=== PATIENT | female | born 1990 | race Caucasian/White ===

== ENCOUNTER → 2017-12-28 16:19 | Outpatient (CLI) | payer OTHER, SELFPAY ==
[2017-12-28 18:07] LABS: T4 Free Direct 1.19 ng/dL (0.76-1.46); Thyroid Stim Hormone (TSH) 3.92 uIU/mL (0.358-3.74)
== END ==
PROVIDERS: Family Provider Family Medicine; PCP Family Medicine; Visit Provider Family Medicine
DX: E03.9 Hypothyroidism, unspecified (principal)
CPT/HCPCS: 36415; 84439; 84443

== ENCOUNTER → 2018-02-07 16:05 | Outpatient (CLI) | payer OTHER, SELFPAY ==
[2018-02-07 18:24] LABS: T4 Free Direct 1.44 ng/dL (0.76-1.46); Thyroid Stim Hormone (TSH) 2.61 uIU/mL (0.358-3.74)
== END ==
PROVIDERS: Family Provider Family Medicine; PCP Family Medicine; Visit Provider Family Medicine
DX: E03.9 Hypothyroidism, unspecified (principal)
CPT/HCPCS: 36415; 84439; 84443

== ENCOUNTER → 2018-03-09 14:32 | Outpatient (CLI) | payer OTHER, SELFPAY ==
[2018-03-09 16:36] LABS: Free T3 2.5 pg/mL (2.18-3.98); T4 Free Direct 1.27 ng/dL (0.76-1.46); Thyroid Stim Hormone (TSH) 2.89 uIU/mL (0.358-3.74)
[2018-03-09 17:26] LABS: Chlamydia Trachomatis by PCR Negative (Negative); Neisserai gonorrhoeae by PCR Negative (Negative); Probe Check PASS; Sample Adequacy Control PASS; Specimen Processing Control PASS
[2018-03-13 17:22] LABS: PARVOVIRUS B19 IGG 6.4 index (0.0-0.8); PARVOVIRUS B19 IGM 0.1 index (0.0-0.8)
== END ==
PROVIDERS: Visit Provider Obstetrics & Gynecology
DX: Z11.3 Encounter for screening for infections with a predominantly sexual mode of transmission (principal)
CPT/HCPCS: 36415; 84439; 84443; 84481; 86747; 87491; 87591

== ENCOUNTER → 2018-04-06 10:04 | Outpatient (CLI) | payer OTHER, SELFPAY ==
[2018-04-06 11:35] LABS: Absolute Lymphocyte Count 1.85 X10^3/ul (0.83-4.51); Basophil# 0.01 X10^3/uL; Basophil% 0.1 % (0-1); Eosinophil# 0.25 X10^3/uL; Eosinophils% 3.2 % (0-5); Hematocrit 37.3 % (37-47); Lymphocyte # 1.85 X10^3/ul (4.0); Lymphocyte % 23.9 % (19-41); Mean Corp Hgb Conc 34.9 g/gl (32-36); Mean Corpuscular Volume 85.9 fL (81-99); Mean Platelet Vol. 10.8 fl (6.2-12.0); Monocyte# 0.62 X10^3/uL; Neutrophil # 4.99 X10^3/uL (2.7-7.7); Neutrophil % 64.5 % (47-70); Platelet Count 295 K/mm3 (150-450); RBC Distribution Width CV 12.6 % (11.6-14.6); RBC Distribution Width SD 38.9 fl (35.1-43.9); Red Blood Count 4.34 M/mm3 (4.2-5.4); White Blood Count 7.7 K/mm3 (4.4-11.0)
[2018-04-06 11:39] LABS: COTININE Drug Screen Negative (<200 ng/mL); POSITIVE COUNT NO; POSITIVE DIFFERENTIAL NO; POSITIVE MORPHOLOGY NO
[2018-04-06 11:45] LABS: Amphetamine Urine VISTA NEGATIVE (<1000 ng/mL); Barbiturate Urine VISTA NEGATIVE (< 200 ng/mL); Benzodiazepine Urine VISTA NEGATIVE (< 200 ng/mL); Cocaine Urine VISTA NEGATIVE (< 300 ng/mL); Ecstacy Urine VISTA NEGATIVE (< 500 ng/mL); Methadone Urine VISTA NEGATIVE (< 300 ng/mL); PCP Urine VISTA NEGATIVE (< 25 ng/mL); THC Urine VISTA NEGATIVE (< 50 ng/mL); Vista UDS pH Range 6
[2018-04-06 11:50] LABS: Thyroid Stim Hormone (TSH) 2.69 uIU/mL (0.358-3.74)
[2018-04-06 12:07] LABS: Color, Urine YELLOW (Yellow); Glucose, Dipstick Normal (Normal); Ketone-Dipstick Negative (Negative); Leukocyte Esterase-Dipstick 500 /ul (Negative); Nitrite-Dipstick Negative (Negative); Occult Blood-Urine Negative /ul (Negative); Protein-Dipstick Negative (Negative); Specific Gravity, Urine 1.015 (1.002-1.030); Urine Bilirubin Dipstick Negative (Negative); Urine Clarity Cloudy (Clear); Urine Urobilinogen Normal (Normal); Urine pH 6.5 (5.0 - 8.0)
[2018-04-06 13:10] LABS: HIV - WCH Non-Reactive (Nonreactive); Rubella IgG 39.5 IU/mL
[2018-04-08 09:10] LABS: HEPATITIS B SURFACE AG Negative (Negative); Hep C Antibodies <0.1 s/co ratio (0.0-0.9)
[2018-04-13 09:08] LABS: Prenatal RPR NONREACTIVE (NONREACTIVE)
== END ==
PROVIDERS: Visit Provider Obstetrics & Gynecology
DX: Z34.81 Encounter for supervision of other normal pregnancy, first trimester (principal)
CPT/HCPCS: 36415; 80307; 81002; 84443; 85025; 86703; 86762; 86803; 87340

== ENCOUNTER → 2018-04-25 13:08 | Outpatient (CLI) | payer OTHER, SELFPAY | PROVIDERS: Visit Provider Obstetrics & Gynecology | DX: Z34.82 Encounter for supervision of other normal pregnancy, second trimester (principal); R30.0 Dysuria | CPT/HCPCS: 87086; 87088 ==

== ENCOUNTER → 2018-06-07 15:31 | Outpatient (CLI) | payer OTHER, SELFPAY | PROVIDERS: Visit Provider Obstetrics & Gynecology | DX: R30.0 Dysuria (principal) | CPT/HCPCS: 87086; 87088 ==

== ENCOUNTER → 2018-07-05 16:58 | Outpatient (CLI) | payer OTHER, SELFPAY ==
[2018-07-05 17:15] LABS: Hematocrit 31.4 % (37-47); Hemoglobin 10.4 g/dl (12.0-15.0); Mean Corp Hgb Conc 33.1 g/gl (32-36); Mean Corpuscular Hgb 29.1 pg (27.0-32.0); Mean Corpuscular Volume 87.7 fL (81-99); Mean Platelet Vol. 11.2 fl (6.2-12.0); Platelet Count 262 K/mm3 (150-450); RBC Distribution Width CV 12.6 % (11.6-14.6); RBC Distribution Width SD 40.9 fl (35.1-43.9); Red Blood Count 3.58 M/mm3 (4.2-5.4); White Blood Count 10.1 K/mm3 (4.4-11.0)
[2018-07-05 17:18] LABS: Scan Indicated on CBC? Y/N NO
[2018-07-05 17:36] LABS: Mucous, Urine 0 SEEN /hpf (<or=2+)
[2018-07-05 17:41] LABS: Glucose Challenge Gest 1H 50g 117 mg/dL (70-140)
[2018-07-05 17:59] LABS: Color, Urine Straw (Yellow); Glucose, Dipstick Normal (Normal); Ketone-Dipstick Negative (Negative); Leukocyte Esterase-Dipstick 500 /ul (Negative); Nitrite-Dipstick Negative (Negative); Occult Blood-Urine 150 /ul (Negative); Protein-Dipstick Negative (Negative); Urine Bilirubin Dipstick Negative (Negative); Urine Clarity Clear (Clear); Urine Urobilinogen Normal (Normal)
[2018-07-05 18:41] LABS: Squamous Epithelial Cells - UA 0-5 SEEN /hpf (5-10)
[2018-07-05 18:43] LABS: White Blood Cells 5-10 SEEN /hpf (0-5)
[2018-07-05 18:44] LABS: Bacteria RARE /hpf (None Seen)
[2018-07-05 18:45] LABS: Red Blood Cells-Urine 0-5 SEEN /hpf (0-5)
[2018-07-06 15:07] LABS: Ferritin 6 ng/mL (8-252); Free T3 2.8 pg/mL (2.18-3.98); T4 Free Direct 1.05 ng/dL (0.76-1.46); Thyroid Stim Hormone (TSH) 3.47 uIU/mL (0.358-3.74)
== END ==
PROVIDERS: Obstetrics & Gynecology; Family Provider Family Medicine; PCP Family Medicine; Visit Provider Obstetrics & Gynecology
DX: Z34.82 Encounter for supervision of other normal pregnancy, second trimester (principal); N39.0 Urinary tract infection, site not specified
CPT/HCPCS: 81001; 82728; 82950; 84439; 84443; 84481; 85027; 87077; 87086; 87088; 87186

== ENCOUNTER → 2018-09-06 18:46 | Outpatient (CLI) | payer OTHER, SELFPAY ==
[2018-09-06 19:15] LABS: Free T3 2.7 pg/mL (2.18-3.98); T4 Free Direct 1.15 ng/dL (0.76-1.46); Thyroid Stim Hormone (TSH) 2.78 uIU/mL (0.358-3.74)
== END ==
PROVIDERS: Family Provider Family Medicine; PCP Family Medicine; Referring Provider Obstetrics & Gynecology; Visit Provider Obstetrics & Gynecology
DX: Z34.83 Encounter for supervision of other normal pregnancy, third trimester (principal); E03.9 Hypothyroidism, unspecified
CPT/HCPCS: 84439; 84443; 84481

== ENCOUNTER → 2018-09-26 10:10 | Outpatient (CLI) | payer OTHER, SELFPAY ==
[2018-09-26 11:10] LABS: Protein, Urine (Random) 52.9 mg/dL (<11.9)
[2018-09-26 11:12] LABS: ALB/GLOB Ratio 0.6 RATIO (0.9-2.4); AST(SGOT) 13 U/L (15-37); Alanine Aminotransfer ALT/SGPT 19 U/L (13-56); Albumin, Serum 2.8 g/dL (3.2-5.0); Alkaline Phosphatase 259 U/L (45-117); Anion Gap 12 (5-15); BUN 6 mg/dL (7-18); BUN/Creat Ratio 8.2 RATIO (10-20); Calcium,Total 8.5 mg/dL (8.5-10.1); Chloride 107 mmol/L (98-107); Creatinine, Serum 0.73 mg/dL (0.55-1.02); EST Glomerular Filtration Rate 100 mL/min (>60); Est Glom Filt Rate - Afr Amer 121 mL/min (>60); Globulin 4.6 g/dL (2.2-4.2); Glucose 89 mg/dL (74-106); Protein, Total 7.4 g/dL (6.4-8.2); Sodium Level 139 mmol/L (136-145); Uric Acid 5.8 mg/dL (2.6-6.0)
[2018-09-26 11:18] LABS: Hematocrit 35.2 % (37-47); Hemoglobin 11.3 g/dl (12.0-15.0); Mean Corp Hgb Conc 32.1 g/gl (32-36); Mean Corpuscular Hgb 27.2 pg (27.0-32.0); Mean Corpuscular Volume 84.6 fL (81-99); Mean Platelet Vol. 13.6 fl (6.2-12.0); Platelet Count 201 K/mm3 (150-450); Red Blood Count 4.16 M/mm3 (4.2-5.4); White Blood Count 7.4 K/mm3 (4.4-11.0)
[2018-09-26 11:29] LABS: Scan Indicated on CBC? Y/N NO
== END ==
PROVIDERS: Family Provider Family Medicine; PCP Family Medicine; Visit Provider Obstetrics & Gynecology
DX: Z34.83 Encounter for supervision of other normal pregnancy, third trimester (principal); O13.9 Gestational [pregnancy-induced] hypertension without significant proteinuria, unspecified trimester; Z3A.00 Weeks of gestation of pregnancy not specified
CPT/HCPCS: 36415; 80053; 82570; 84156; 84550; 85027

== ENCOUNTER 2018-09-26 16:15 | Inpatient (IN) | payer OTHER, SELFPAY ==
[2018-09-26 16:46] VITALS: BMI 29.8
[2018-09-26] MEDS: Lactated Ringers 1,000 ML 50 ML IV ×3 (17:43→22:24)
[2018-09-26] MEDS: Oxytocin 30 units/NS 500 ml 30 UNITS/500 ML IV.SOLN IV (17:49)
--- NOTE | 2018-09-26 18:46 | PCM.PN.OB ---
Subjective: Comfortable feeling some contractions but now with epidural in place. Objective: AFeb VSS BPs normal. - Physical Exam General: Alert, Oriented x3, Cooperative, No apparent distress Lungs: Clear to auscultation, Normal air movement Cardiovascular: Regular rate, Regular Rhythm Abdomen: Soft, Non Tender, Non-Distended, Gravid, Appropriate for Gestational Age Extremities: No edema Neurological: Neuro grossly intact Psych/Mental Status: Normal Affect Comment: CE 2-3 Weight: 163 lb 5.8 oz Body Mass Index (BMI) 29.8 Laboratory Tests Past 24 Hrs 09/26/18 17:15 Blood Type A POSITIVE Antibody Screen NEGATIVE Medical Necessity - Tobacco Use Smoking Status: Never smoker Assessment/Plan Shabana was admitted for induction of labor secondary to elevated BPs in the office today with elevated urine protein and elevated protein to creatinine ratio. Her is otherwise uncomplicated. She was admitted and after reassuring FHR tracing was observed she was started on pitocin to induce her labor. At about 1820 the heart rate decelerated into the 50s and despite convention recussitation methods (positioning, O2, stopping pitocin) the heart rate did not recover. She was taken to the OR and about 10 minutes after the deceleration started it recovered back to the 130s.AROM was performed with clear fluid noted. An IUPC and KAHLIL were placed. Will return to her labor room for continued induction.
--- NOTE | 2018-09-26 22:33 | PCM.PN.OB ---
Subjective: Comfortable with contractions. Objective: Afeb VSS - Physical Exam General: Alert, Oriented x3, Cooperative, No apparent distress Lungs: Clear to auscultation, Normal air movement Cardiovascular: Regular rate, Regular Rhythm Abdomen: Soft, Non Tender, Gravid, Appropriate for Gestational Age Extremities: No edema Skin: No rashes Neurological: Neuro grossly intact Psych/Mental Status: Normal Affect Comment: CE 8 cm 80% 0 station Weight: 163 lb 5.8 oz Body Mass Index (BMI) 29.8 Laboratory Tests Past 24 Hrs 09/26/18 17:15 Blood Type A POSITIVE Antibody Screen NEGATIVE Medical Necessity - Tobacco Use Smoking Status: Never smoker Assessment/Plan Called to bedside after heart rate deceleration to the 50s for 3 minutes. Heart rate pattern improved with position changes. Making cervical change. Will observe for now. FHR tracing now more reassuring. Progressing in labor.
--- NOTE | 2018-09-26 23:39 | PCM.PN.OB ---
Subjective: Comfortable with epidural Objective: Afeb VSS - Physical Exam General: Alert, Oriented x3, Cooperative, No apparent distress Lungs: Clear to auscultation, Normal air movement Cardiovascular: Regular rate, Regular Rhythm Abdomen: Soft, Non Tender, Non-Distended, Gravid, Appropriate for Gestational Age Extremities: No edema Skin: No rashes Neurological: Neuro grossly intact Psych/Mental Status: Normal Affect Comment: FD 0 station Weight: 163 lb 5.8 oz Body Mass Index (BMI) 29.8 Laboratory Tests Past 24 Hrs 09/26/18 17:15 Blood Type A POSITIVE Antibody Screen NEGATIVE Medical Necessity - Tobacco Use Smoking Status: Never smoker Assessment/Plan SOme heart rate decelerations but overall good variability. Will start pushing efforts now.
[2018-09-27] MEDS: fentaNYL-bupivacaine (epidural) 100 ML BAG EPIDURAL (00:10)
[2018-09-27] MEDS: Oxytocin 30 units/NS 500 ml 30 UNITS/500 ML IV.SOLN 334 UNITS IV (00:28)
--- NOTE | 2018-09-27 00:50 | OP.PCM_ITS ---
Vaginal Delivery Maternal Presentation: Medically Indicated Induction 39w3d EGA with suspected preeclampsia Method of Induction: Pitocin Medical Reason for Induction: Preeclampsia, eclampsia Amniotic Membrane Rupture Type: Artificial Rupture of Membrane time: 1800 Amniotic Fluid Description: Clear Final JAUN: 10/02/18 Final JAUN Source: US <20 weeks Gestational age: 39 Weeks and 2 Days [place] doctor who attended delivery (if requested by OB): Kaity Del Rosario Date of Procedure: 09/27/18 Pre-Operative Diagnosis: Labor with repetitive heart rate decelerations Post-Operative Diagnosis: same Surgery/ Procedure Performed: Vacuum Assisted Vaginal Delivery Anesthesiologist: Omar Gavin Type of Anesthesia: Epidural Description of Procedure: Presented at 4 cm dilated. AROM was performed early in induction due to heart rate deceleration. She was intermittently on pitocin augmentation but maximum amount of pitocin was 2 mu/min. She progressed to FD and heart rate decelerations led to decision to hasten delivery with Kiwi vacuum device. The device was placed with care to avoid the fontanelles. With gentle traction and with pushing efforts over two contractions the baby's head was delivered to the perineum. There was a tight umbilical cord which was reduced after delivery of the body. The cord was clamped and cut and the baby taken to the warmer for evaluation by the integration consultant. Cord blood gases were collected. The placenta was delivered spontaneously intact with a centrally located 3VC. The uterus contracted well. A small first degree posterior vaginal tear was repaired with 2-0 Vicryl. Presentation: Vertex Placental Delivery Description: Spontaneous Placenta Disposition: [facility] Percentage of Placenta Abruption: 0 Cord Vessel Description: 3 Vessels Nuchal Cord Compression: With compression Cord Gases drawn per routine: ABG, VBG Cord Entanglement: Around neck x 1, tight Drain: Cruz to straight drain Estimated Blood Loss: 200cc Infant A gender: Male (1 minute): 8 (5 minute): 9 Episiotomy Description: None Laceration: Midline, Vaginal Extension/lac, 1st degree Medications given after delivery: IV Pitocin Complications: None
[2018-09-27] MEDS: Oxytocin 30 units/NS 500 ml 30 UNITS/500 ML IV.SOLN 167 UNITS IV (01:00)
[2018-09-27] MEDS: 0.9% Saline Lock 10 ML Syringe IV (02:00)
[2018-09-27 04:00] VITALS: BP 155/83; PULSE 72; RESP 16; TEMP 36.9
[2018-09-27] MEDS: Levothyroxine 125 MCG Tablet PO (06:13)
[2018-09-27] MEDS: Ibuprofen 600 MG Tablet PO ×3 (06:13→21:09)
[2018-09-27 08:00] VITALS: BP 132/77; PULSE 78; RESP 16; TEMP 36.9
--- NOTE | 2018-09-27 08:57 | PCM.PN.OB ---
Subjective: Doing well, bleeding light. Breast feeding. Objective: Afeb BP modestly elevated. - Physical Exam General: Alert, Oriented x3, Cooperative, No apparent distress Lungs: Clear to auscultation, Normal air movement Cardiovascular: Regular rate, Regular Rhythm Abdomen: Soft, Non Tender, Non-Distended, - - Fundus firm nontender Extremities: No edema Skin: No rashes Neurological: Neuro grossly intact Psych/Mental Status: Normal Affect Comment: Lochia appropriate Vital Signs Temp Pulse Resp BP 98.4 F 72 16 155/83 H 09/27/18 04:00 09/27/18 04:00 09/27/18 04:00 09/27/18 04:00 Weight: 163 lb 5.8 oz Body Mass Index (BMI) 29.8 Intake and Output for Last 24 Hours 09/25/18 09/26/18 09/27/18 23:59 23:59 23:59 Intake Total 2012 Output Total 2400 / 2400 Balance -387 / -387 Laboratory Tests Past 24 Hrs 09/26/18 17:15 Blood Type A POSITIVE Antibody Screen NEGATIVE Medical Necessity - Tobacco Use Smoking Status: Never smoker Assessment/Plan Doing well on PP day#1. Continue routine PP care.
--- NOTE | 2018-09-27 09:02 | DCINST_ITS ---
Discharge Diet: No Restrictions Discharge Activity: Return to Normal Activity, May Drive, May Shower Return to work on:: 11/27/18 May resume sexual activity in: 4-6 weeks Call your doctor if your incision/area has: Sudden Increased Bleeding, Increased Pain/ Swelling, Foul Smelling Discharge Call your doctor if you observe: Fever of 101 or Higher, Inability to urinate, Inability to have a bowel movement, Using more than one pad per hour, Shortness of breath, Chest pain, Calf discomfort, Uncontrolled pain Cleanse incision/area with: Soap & Water Additional Instructions: If you experience any of the following, contact your healthcare provider. * Bleeding that soaks a pad every hour for 2 hours * Fever 100.4 or higher * Unrelieved incision or abdominal pain * Swelling, redness, discharge or bleeding from your incision or episiotomy site * Your incision begins to separate * Problems urinating (including inability to urinate or burning while urinating). * Visual changes * Severe headache * Flu-like symptoms * Pain or redness in one of both of your breasts * Pain, warmth, tenderness or swelling in your legs, especially the calf area * Frequent nausea and vomiting * Symptoms of depression or anxiety If you experience any of the following, call 911 or go to the nearest Emergency Room. * Chest pain * Problems breathing * Seizure activity * Partial or complete paralysis of a body part, slurred speech, weakness or drooping of the face, or a sudden inability to walk or hold your balance Allergies/Adverse Reactions: Allergies No Known Allergies Allergy (Verified 09/26/18 16:47) Medications to take at Discharge Levothyroxine [Synthroid] 125 mcg PO DAILY 09/26/18 Ibuprofen 600 mg PO 4X/DAY #30 tab 09/27/18 The following prescriptions were given: Ibuprofen 600 mg PO 4X/DAY #30 tab Please Follow Up With: Chrissie Hernandez MD When: 6 weeks Primary Care Physician: Josue Linares MD [Primary Care Provider] - Test Results: Test results from this visit will be discussed in further detail at your follow- up appointment, if applicable. Proposed Discharge Date: 09/28/18
[2018-09-27 12:00] VITALS: BP 130/74; PULSE 83; RESP 16; TEMP 36.4
[2018-09-27 15:02] LABS: Hematocrit 30.2 % (37-47); Hemoglobin 9.6 g/dl (12.0-15.0); Mean Corp Hgb Conc 31.8 g/gl (32-36); Mean Corpuscular Hgb 27.1 pg (27.0-32.0); Mean Corpuscular Volume 85.3 fL (81-99); Mean Platelet Vol. 12.9 fl (6.2-12.0); Platelet Count 193 K/mm3 (150-450); RBC Distribution Width CV 15.5 % (11.6-14.6); RBC Distribution Width SD 48.5 fl (35.1-43.9); Red Blood Count 3.54 M/mm3 (4.2-5.4); Scan Indicated on CBC? Y/N NO; White Blood Count 14.8 K/mm3 (4.4-11.0)
[2018-09-27 16:30] VITALS: BP 139/72; PULSE 76; RESP 16; TEMP 36.2
[2018-09-27 19:30] VITALS: BP 147/70; PULSE 71; RESP 17; TEMP 36.2
[2018-09-27 23:15] VITALS: BP 88/50; PULSE 118; RESP 17; TEMP 37.4
[2018-09-28 04:23] VITALS: BP 136/67; PULSE 78; RESP 16; TEMP 36.1; O2SAT 97
--- NOTE | 2018-09-28 05:15 | PCM.PN.OB ---
Subjective: Doing well. No specific complaints. Bleeding light. Breast feeding. Objective: Afeb VSS - Physical Exam General: Alert, Oriented x3, Cooperative, No apparent distress Lungs: Clear to auscultation, Normal air movement Cardiovascular: Regular rate, Regular Rhythm Abdomen: Soft, Non Tender, Non-Distended Extremities: No edema Skin: No rashes Neurological: Neuro grossly intact Psych/Mental Status: Normal Affect Comment: Lochia light Vital Signs Temp Pulse Resp BP Pulse Ox 96.9 F L 78 16 136/67 H 97 09/28/18 04:23 09/28/18 04:23 09/28/18 04:23 09/28/18 04:23 09/28/18 04:23 Oxygen Delivery Method Room Air Weight: 163 lb 5.8 oz Body Mass Index (BMI) 29.8 Intake and Output for Last 24 Hours 09/26/18 09/27/18 09/28/18 23:59 23:59 23:59 Intake Total 2012 Output Total 3400 / 3400 Balance -1387 / -1387 Laboratory Tests Past 24 Hrs 09/27/18 14:28 WBC 14.8 H RBC 3.54 L Hgb 9.6 L Hct 30.2 L MCV 85.3 MCH 27.1 MCHC 31.8 L RDW 15.5 H RDW Differential 48.5 H Plt Count 193 MPV 12.9 H Medical Necessity - Tobacco Use Smoking Status: Never smoker Assessment/Plan Doing well on PP day#2. Cleared for discharge home today. Home going instructions and warnings given.
--- NOTE | 2018-09-28 05:17 | PCM.DC.SUM ---
Discharge Date and Diagnosis Date of Admission: 09/26/18 Date of Discharge: 09/28/18 - Primary Discharge Diagnosis S/P vacuum assisted vaginal delivery Hospital Course and Treatment Procedures: - - Pitocin induction, epidural anesthesia, vacuum assisted vaginal delivery Summary of Care Provided: The patient is a 28 year old F [admitted for induction of labor due to elevated blood pressure in the office with proteinuria (mild preeclampsia). Induction resulted in vacuum delivery of a live male without complication. Post course unremarkable. Discharged home on PP day#2.] - Physical Exam Vital Signs Temp Pulse Resp BP Pulse Ox 96.9 F L 78 16 136/67 H 97 09/28/18 04:23 09/28/18 04:23 09/28/18 04:23 09/28/18 04:23 09/28/18 04:23 Oxygen Delivery Method Room Air Weight: 163 lb 5.8 oz Body Mass Index (BMI) 29.8 Intake and Output for Last 24 Hours 09/26/18 09/27/18 09/28/18 23:59 23:59 23:59 Intake Total 2012 Output Total 3400 / 3400 Balance -1387 / -1387 Laboratory Tests Past 24 Hrs 09/27/18 14:28 WBC 14.8 H RBC 3.54 L Hgb 9.6 L Hct 30.2 L MCV 85.3 MCH 27.1 MCHC 31.8 L RDW 15.5 H RDW Differential 48.5 H Plt Count 193 MPV 12.9 H Discharge Diet: No Restrictions Discharge Activity: Return to Normal Activity, May Drive, May Shower Return to work on:: 11/27/18 May resume sexual activity in: 4-6 weeks Call your doctor if your incision/area has: Sudden Increased Bleeding, Increased Pain/ Swelling, Foul Smelling Discharge Call your doctor if you observe: Fever of 101 or Higher, Inability to urinate, Inability to have a bowel movement, Using more than one pad per hour, Shortness of breath, Chest pain, Calf discomfort, Uncontrolled pain Cleanse incision/area with: Soap & Water Home Medications: Medications to take at Discharge Levothyroxine [Synthroid] 125 mcg PO DAILY 09/26/18 Ibuprofen 600 mg PO 4X/DAY #30 tab 09/27/18 Following Prescrptions Were Given to Patient: Ibuprofen 600 mg PO 4X/DAY #30 tab Primary Care Physician: Josue Linares MD [Primary Care Provider] - Please Follow Up With: Chrissie Hernandez MD When: 6 weeks Disposition: Home Minutes spent on discharge:: 15 Patient Condition:: Good Medical Necessity - Tobacco Use Smoking Status: Never smoker Meaningful Use Info Meaningful Use Diagnoses (Choose all that apply): None applicable
[2018-09-28] MEDS: Levothyroxine 125 MCG Tablet PO (05:39)
[2018-09-28 09:45] VITALS: BP 144/73; PULSE 86; RESP 16; TEMP 36.2
[2018-09-28 13:51] VITALS: BP 133/74; PULSE 78; RESP 16; TEMP 36.3
== END 2018-09-28 15:15 | disposition home or self-care (01) | DRG 806 ==
PROVIDERS: Admitting Provider Obstetrics & Gynecology; Family Provider Family Medicine; PCP Family Medicine; Referring Provider Obstetrics & Gynecology; Visit Provider Obstetrics & Gynecology
DX: O76 Abnormality in fetal heart rate and rhythm complicating labor and delivery (principal); O71.4 Obstetric high vaginal laceration alone; Z37.0 Single live birth; Z3A.39 39 weeks gestation of pregnancy; O99.820 Streptococcus B carrier state complicating pregnancy; O99.283 Endocrine, nutritional and metabolic diseases complicating pregnancy, third trimester; E03.9 Hypothyroidism, unspecified; Z79.899 Other long term (current) drug therapy; O69.1XX0 Labor and delivery complicated by cord around neck, with compression, not applicable or unspecified; O14.14 Severe pre-eclampsia complicating childbirth
CPT/HCPCS: 59025; 59050; 85027; 86850; 86900; 99218; J7120; A4216; G0378; J0290

== ENCOUNTER → 2018-11-08 13:22 | Outpatient (CLI) | payer OTHER, SELFPAY ==
[2018-11-08 16:52] LABS: Free T3 4.4 pg/mL (2.18-3.98); T4 Free Direct 1.54 ng/dL (0.76-1.46); Thyroid Stim Hormone (TSH) 0.02 uIU/mL (0.358-3.74)
== END ==
PROVIDERS: Family Provider Family Medicine; PCP Family Medicine; Visit Provider Obstetrics & Gynecology
DX: E03.9 Hypothyroidism, unspecified (principal)
CPT/HCPCS: 36415; 84439; 84443; 84481

== ENCOUNTER 2018-11-16 18:25 | Outpatient (CLI) | payer OTHER, SELFPAY | END 2018-11-16 19:10 | disposition home or self-care (01) | LOC: WPOUT 18:30 → WP 18:31 | PROVIDERS: Family Provider Family Medicine; PCP Family Medicine; Visit Provider Obstetrics & Gynecology | DX: R63.3 Feeding difficulties (principal) | CPT/HCPCS: 96152 ==

== ENCOUNTER → 2018-12-13 11:16 | Outpatient (CLI) | payer OTHER, SELFPAY ==
[2018-12-13 15:04] LABS: Free T3 5.1 pg/mL (2.18-3.98); T4 Free Direct 1.63 ng/dL (0.76-1.46); Thyroid Stim Hormone (TSH) < 0.01 uIU/mL (0.358-3.74)
== END ==
PROVIDERS: Family Provider Family Medicine; PCP Family Medicine; Visit Provider Family Medicine
DX: E03.9 Hypothyroidism, unspecified (principal)
CPT/HCPCS: 36415; 84439; 84443; 84481

== ENCOUNTER → 2019-02-22 10:40 | Outpatient (CLI) | payer OTHER, SELFPAY ==
[2019-02-22 11:49] LABS: T4 Free Direct 0.88 ng/dL (0.76-1.46); Thyroid Stim Hormone (TSH) 9.28 uIU/mL (0.358-3.74)
== END ==
PROVIDERS: Family Provider Family Medicine; PCP Family Medicine; Referring Provider Family Medicine; Visit Provider Family Medicine
DX: E03.9 Hypothyroidism, unspecified (principal)
CPT/HCPCS: 36415; 84439; 84443

== ENCOUNTER → 2019-04-29 | Outpatient (CLI) | payer OTHER, SELFPAY ==
[2019-04-29 18:00] LABS: T4 Free Direct 1.04 ng/dL (0.76-1.46); Thyroid Stim Hormone (TSH) 4.54 uIU/mL (0.358-3.74)
== END | disposition home or self-care (01) ==
LOC: MFPLAB 15:03
PROVIDERS: Family Provider Family Medicine; PCP Family Medicine; Visit Provider Family Medicine
DX: E03.9 Hypothyroidism, unspecified (principal)
CPT/HCPCS: 36415; 84439; 84443

== ENCOUNTER → 2019-06-10 | Outpatient (CLI) | payer OTHER, SELFPAY ==
[2019-06-10 13:03] LABS: T4 Free Direct 1.19 ng/dL (0.76-1.46); Thyroid Stim Hormone (TSH) 2.37 uIU/mL (0.358-3.74)
== END | disposition home or self-care (01) ==
LOC: MFPLAB 10:43
PROVIDERS: Family Provider Family Medicine; PCP Family Medicine; Visit Provider Family Medicine
DX: E03.9 Hypothyroidism, unspecified (principal)
CPT/HCPCS: 36415; 84439; 84443

== ENCOUNTER → 2019-10-28 13:40 | Outpatient (CLI) | payer OTHER, SELFPAY ==
[2019-10-28 16:48] LABS: Free T3 2.9 pg/mL (2.18-3.98); Thyroid Stim Hormone (TSH) 0.97 uIU/mL (0.358-3.74)
== END ==
PROVIDERS: Family Medicine; Family Provider Family Medicine; PCP Family Medicine; Referring Provider Family Medicine; Visit Provider Family Medicine
DX: E03.9 Hypothyroidism, unspecified (principal)
CPT/HCPCS: 36415; 84443; 84481

== ENCOUNTER → 2019-11-08 16:09 | Outpatient (CLI) | payer OTHER, SELFPAY ==
[2019-11-12 16:16] LABS: HPV APTIMA, High Risk Negative (Negative)
== END ==
PROVIDERS: Family Provider Family Medicine; PCP Family Medicine; Visit Provider Obstetrics & Gynecology
DX: Z12.4 Encounter for screening for malignant neoplasm of cervix (principal)
CPT/HCPCS: 87624; 88175; G0145

== ENCOUNTER → 2020-02-28 | Outpatient (CLI) | payer OTHER, SELFPAY ==
[2020-02-28 15:21] LABS: Absolute Neutrophil Count 5.1 X10^3/uL (2.0-7.7); Basophil# 0.01 X10^3/uL; Basophil% 0.1 % (0-1); Eosinophil# 0.22 X10^3/uL; Eosinophils% 2.7 % (0-5); Hematocrit 35.4 % (37-47); Hemoglobin 11.7 g/dL (12.0-15.0); Lymphocyte % 26.2 % (19-41); Mean Corp Hgb Conc 33.1 g/dL (32-36); Mean Corpuscular Hgb 28.5 pg (27.0-32.0); Mean Corpuscular Volume 86.3 fL (81-99); Mean Platelet Vol. 10.9 fl (6.2-12.0); Monocyte# 0.57 X10^3/uL; Monocyte% 7.1 % (0-10); NRBC Flagged by Analyzer 0 % (0-5); Neutrophil % 63.5 % (47-70); Platelet Count 299 K/mm3 (150-450); RBC Distribution Width SD 40.9 fl (35.1-43.9)
[2020-02-28 15:43] LABS: Color, Urine Yellow (Yellow); Glucose, Dipstick Normal (Normal); Ketone-Dipstick Negative (Negative); Leukocyte Esterase-Dipstick Negative /ul (Negative); Nitrite-Dipstick Negative (Negative); Occult Blood-Urine Negative /ul (Negative); Protein-Dipstick Negative (Negative); Specific Gravity, Urine 1.015 (1.002-1.030); Urine Bilirubin Dipstick Negative (Negative); Urine Clarity Clear (Clear); Urine Urobilinogen Normal (Normal)
[2020-02-28 15:57] LABS: T4 Free Direct 1.13 ng/dL (0.76-1.46); Thyroid Stim Hormone (TSH) 3.83 uIU/mL (0.358-3.74)
[2020-02-28 15:59] LABS: Amphetamine Urine VISTA NEGATIVE (<1000 ng/mL); Barbiturate Urine VISTA NEGATIVE (< 200 ng/mL); Benzodiazepine Urine VISTA NEGATIVE (< 200 ng/mL); Cocaine Urine VISTA NEGATIVE (< 300 ng/mL); Ecstacy Urine VISTA NEGATIVE (< 500 ng/mL); Methadone Urine VISTA NEGATIVE (< 300 ng/mL); PCP Urine VISTA NEGATIVE (< 25 ng/mL); THC Urine VISTA NEGATIVE (< 50 ng/mL); Vista UDS pH Range 8
[2020-02-28 18:23] LABS: Chlamydia Trachomatis by PCR Negative (Negative); Neisserai gonorrhoeae by PCR Negative (Negative); Probe Check PASS; Sample Adequacy Control PASS; Specimen Processing Control PASS
[2020-03-02 09:26] LABS: HIV - WCH Non-Reactive (Nonreactive); Hepatitis B Surface Antigen Non-Reactive (Nonreactive); Hepatitis C Antibody Non-Reactive (Nonreactive); Rubella IgG 31.4 IU/mL
[2020-03-05 01:34] LABS: Prenatal RPR NONREACTIVE (NONREACTIVE)
== END | disposition home or self-care (01) ==
LOC: LABSPEC 14:22
PROVIDERS: PCP Family Medicine; Referring Provider Obstetrics & Gynecology; Visit Provider Obstetrics & Gynecology
DX: O99.281 Endocrine, nutritional and metabolic diseases complicating pregnancy, first trimester (principal); E03.9 Hypothyroidism, unspecified; Z3A.00 Weeks of gestation of pregnancy not specified; Z11.3 Encounter for screening for infections with a predominantly sexual mode of transmission
CPT/HCPCS: 80307; 81002; 84439; 84443; 84481; 85025; 86703; 86762; 86803; 87340; 87491; 87591

== ENCOUNTER → 2020-03-27 10:41 | Outpatient (CLI) | payer OTHER, SELFPAY ==
[2020-04-02 03:06] LABS: AFP MoM Value 1.11 (.); AFP Value-EIA 33.9 ng/mL (.); Comment Report (.); DIA MoM Value 0.78 (.); DIA Value-EIA 152.31 pg/mL (.); DSR (By Age) 673 (.); DSR (Second Trimester) 2059 (.); Gestat. Age Based On As provided (.); Insulin Dep Diabetes No (.); Maternal Age At EDD 30.3 yr (.); hCG MoM 1.06 (.)
== END ==
PROVIDERS: PCP Family Medicine; Visit Provider Obstetrics & Gynecology
DX: Z34.82 Encounter for supervision of other normal pregnancy, second trimester (principal)
CPT/HCPCS: 36415; 82105; 82677; 84702

== ENCOUNTER → 2020-04-24 15:05 | Outpatient (CLI) | payer OTHER, SELFPAY ==
[2020-04-24 15:58] LABS: Free T3 2.5 pg/mL (2.18-3.98); T4 Free Direct 1.15 ng/dL (0.76-1.46); Thyroid Stim Hormone (TSH) 5.41 uIU/mL (0.358-3.74)
== END ==
PROVIDERS: PCP Family Medicine; Visit Provider Obstetrics & Gynecology
DX: Z34.82 Encounter for supervision of other normal pregnancy, second trimester (principal); E03.9 Hypothyroidism, unspecified
CPT/HCPCS: 36415; 84439; 84443; 84481

== ENCOUNTER → 2020-06-19 | Outpatient (CLI) | payer OTHER, SELFPAY ==
[2020-06-19 13:20] LABS: Hemoglobin 10.9 g/dL (12.0-15.0); Mean Corp Hgb Conc 32.1 g/dL (32-36); Mean Corpuscular Hgb 28.7 pg (27.0-32.0); Mean Corpuscular Volume 89.5 fL (81-99); Mean Platelet Vol. 10.9 fl (6.2-12.0); Platelet Count 280 K/mm3 (150-450); RBC Distribution Width CV 12.5 % (11.6-14.6); RBC Distribution Width SD 41.1 fl (35.1-43.9); White Blood Count 6.9 K/mm3 (4.4-11.0)
[2020-06-19 13:53] LABS: Free T3 2.5 pg/mL (2.18-3.98); Glucose Challenge Gest 1H 50g 127 mg/dL (70-140); Thyroid Stim Hormone (TSH) 3.83 uIU/mL (0.358-3.74)
== END | disposition home or self-care (01) ==
LOC: LABSPEC 09:54
PROVIDERS: PCP Family Medicine; Visit Provider Obstetrics & Gynecology
DX: Z34.82 Encounter for supervision of other normal pregnancy, second trimester (principal); E03.9 Hypothyroidism, unspecified
CPT/HCPCS: 82950; 84439; 84443; 84481; 85027

== ENCOUNTER → 2020-06-24 | Outpatient (CLI) | payer OTHER, SELFPAY | END | disposition home or self-care (01) | LOC: LABSPEC 14:33 | PROVIDERS: PCP Family Medicine; Visit Provider Obstetrics & Gynecology | DX: R58 Hemorrhage, not elsewhere classified (principal) | CPT/HCPCS: 82731 ==

== ENCOUNTER → 2020-08-11 14:45 | Outpatient (CLI) | payer OTHER, SELFPAY ==
[2020-08-11 16:15] LABS: Free T3 2.2 pg/mL (2.18-3.98); T4 Free Direct 1.23 ng/dL (0.76-1.46); Thyroid Stim Hormone (TSH) 0.86 uIU/mL (0.358-3.74)
== END ==
PROVIDERS: PCP Family Medicine; Visit Provider Obstetrics & Gynecology
DX: E03.9 Hypothyroidism, unspecified (principal)
CPT/HCPCS: 36415; 84439; 84443; 84481

== ENCOUNTER → 2020-08-26 | Outpatient (CLI) | payer OTHER, SELFPAY | END | disposition home or self-care (01) | LOC: LABSPEC 15:57 | PROVIDERS: PCP Family Medicine; Visit Provider Obstetrics & Gynecology | DX: Z36.85 Encounter for antenatal screening for Streptococcus B (principal) | CPT/HCPCS: 87081 ==

== ENCOUNTER 2020-09-08 19:25 | Inpatient (IN) | payer OTHER, SELFPAY ==
[2020-09-08] VITALS (32 sets, daily range): BP systolic 91–167; BP diastolic 55–100; PULSE 66–91; TEMP 36.1–36.8; O2SAT 96–100; BMI 27.8
[2020-09-08] MEDS: Lactated Ringers 500 ML 999 ML IV (19:45)
[2020-09-08 20:06] LABS: Absolute Lymphocyte Count 2.44 X10^3/uL (0.83-4.51); Absolute Neutrophil Count 6.4 X10^3/uL (2.0-7.7); Basophil# 0.02 X10^3/uL; Basophil% 0.2 % (0-1); Eosinophil# 0.23 X10^3/uL; Eosinophils% 2.3 % (0-5); Hematocrit 36.5 % (37-47); Hemoglobin 12.1 g/dL (12.0-15.0); Lymphocyte # 2.44 X10^3/ul (4.0); Lymphocyte % 24.7 % (19-41); Mean Corp Hgb Conc 33.2 g/dL (32-36); Mean Corpuscular Hgb 29.2 pg (27.0-32.0); Mean Corpuscular Volume 88.2 fL (81-99); Mean Platelet Vol. 12.2 fl (6.2-12.0); Monocyte# 0.71 X10^3/uL; Monocyte% 7.2 % (0-10); NRBC Flagged by Analyzer 0 % (0-5); Neutrophil # 6.41 X10^3/uL (2.7-7.7); Neutrophil % 64.8 % (47-70); Platelet Count 256 K/mm3 (150-450); RBC Distribution Width CV 13.1 % (11.6-14.6); RBC Distribution Width SD 41.4 fl (35.1-43.9); Red Blood Count 4.14 M/mm3 (4.2-5.4); White Blood Count 9.9 K/mm3 (4.4-11.0)
[2020-09-08] MEDS: Lactated Ringers 1,000 ML 200 ML IV (20:15)
--- NOTE | 2020-09-08 20:46 | PCM.HP.OB ---
- Problem List (1) 38 weeks gestation of Status: Acute History Date of Admission: 09/26/18 Final JAUN: 09/18/20 Final JAUN Source: US <20 weeks Gestational age: 38 Weeks and 4 Days History of this : This is a 30 year-old, G [2], P [1], at 38 4/7 weeks gestational age presents with painful contractions. She was 4.5/80/-3 in the office late this afternoon. Medical History: Medical History (Last Updated 09/08/20 @ 20:[address] Chrissie Turk MD) Hypothyroidism E03.9 Allergies No Known Allergies Allergy (Verified 09/08/20 19:20) Home Medications: Home Medications Levothyroxine [Synthroid] 150 mcg PO DAILY 09/26/18 Aspirin [Aspirin, Baby] 81 mg PO DAILY 09/08/20 Polyethylene Glycol 3350 [Miralax] 17 gm PO QODAY 09/08/20 Vits [Prenatabs FA ] 1 tab PO DAILY 09/08/20 Smoking Status: Never smoker Alcohol: None NST - FHR Rate Baby A Baseline: 130 Variability:: Moderate Accelerations:: 15 x 15 Decelerations:: None NST Reactive:: Yes FHR Category:: Category I Uterine Activity:: 3-4/10 min History Past Pregnancies: Past Pregnancies Delivery Date Name GA/ Weeks Outcome Route Wt Infant Sex Labor Length Anesthesia Delivery Location Provider FOB 09/26/18 Terelle 39 IOL, gHTN/mild preeclampsia [id number] M 6 Epidural [facility] To Labs: Mom[facility] Microbiology 09/08/20 19:47 Mucosa - Nose - Final Mom's Problem List Problem Status Onset Code 38 weeks gestation of Acute Z3A.[id number] Mom's Labs & Results 09/08/20 09/08/20 19:45 19:45 WBC 9.9 RBC 4.14 L Hgb 12.1 Hct 36.5 L MCV 88.2 MCH 29.2 MCHC 33.2 RDW Std Deviation 41.4 RDW Coeff of Justyna 13.1 Plt Count 256 MPV 12.2 H Immature Gran % (Auto) 0.800 Neut % (Auto) 64.8 Lymph % (Auto) 24.7 [place] % (Auto) 7.2 Eos % (Auto) 2.3 Baso % (Auto) 0.2 Absolute Neuts (auto) 6.4 Absolute Lymphs (auto) 2.44 Nucleated RBC % 0 Blood Type Pending Antibody Screen Pending Course Did the patient receive Yes care? Labs Blood Type: A RH: POSITIVE RPR/VDRL/Syphilis Nonreactive Rubella status Immune HbSAg Negative Date Done: 02/28/20 Chlamydia Negative Gonorrhea Negative HIV/AIDS Non-Reactive Group B Strep: Negative Current Obstetrical History Gestational Diabetes No Incompetent Cervix No Infertility No IUGR No Macrosomia No Hypertension/Pre-eclampsia No Placenta Previa/Abruption No PTL/PROM No Uterine anomaly No Oligohydramnios No Polyhydramnios No Multiple gestation No Past Medical History Asthma No Diabetes No Hypertension No Heart disease No Mitral valve prolapse No Neurologic/Seizure disorder/ No Migraines Kidney disease No Liver disease No Varicosities No Clotting disorders/Hx of DVT No Thyroid Dysfunction Hypothyroidism Other medical diseases No Psychiatric disorders No Major trauma No Abnormal PAP smear No Sleep apnea No Mammogram in the last 2 years No Social History Marital Status: Alleged father To Hx Smoking No Smoking Status Never smoker Expected Delivery Method: Spontaneous Vaginal Number of Visits: 12 Review of Systems Constitutional: Denies: Chills, Fever Eyes: Denies: Vision Change HEENT: Denies: Head Aches Cardiovascular: Denies: Chest Pain, Edema Respiratory: Denies: Shortness of Breath Gastrointestinal: Reports: Nausea. Denies: Abdominal Pain, Diarrhea, Vomiting Physical Exam Vitals: Vital Signs Temp Pulse BP Pulse Ox 98.3 F 80 130/84 H 99 09/08/20 19:06 09/08/20 20:42 09/08/20 19:39 09/08/20 20:42 General: Alert, Oriented x3, Cooperative, No apparent distress HEENT: Atraumatic, Normocephalic Cardiovascular: Regular rate, Regular Rhythm, Normal S1, Normal S2 Lungs: Clear to auscultation, Normal air movement Abdomen: Soft, Non Tender, Non-Distended, Gravid Extremities:: No edema Neurological: Neuro grossly intact Estimated gestational size: Appropriate for gestational size Presentation: Cephalic Cervix Dilation (cm): 6.5 Station: -1 Effacement (%): 85 Assessment/Plan All Active Problems (Last Updated 09/08/20 @ 20:[address] Chrissie Turk MD) 38 weeks gestation of (Acute) This is a 30 year-old, G [2], P [1], at 38 4/7 weeks gestational age in active labor, Cat I FHR -COVID Ag pending -Epidural per patient request -GBS negative -Maternal and statuses reassuring
[2020-09-08] MEDS: fentaNYL-bupivacaine (epidural) 100 ML BAG EPIDURAL (20:54)
[2020-09-08] MEDS: Ondansetron 4 MG/2 ML Vial IV (22:06)
[2020-09-08] MEDS: Oxytocin 30 units/NS 500 ml 30 UNITS/500 ML IV.SOLN 334 UNITS IV (22:52)
--- NOTE | 2020-09-08 23:12 | PCM.OPRPT ---
Problem List (1) 38 weeks gestation of Status: Acute (2) (spontaneous vaginal delivery) Status: Acute Vaginal Delivery Maternal Presentation: Active Labor Amniotic Membrane Rupture Type: Spontaneous Rupture of Membrane time: 09/08/202141h Amniotic Fluid Description: Clear Final JAUN: 09/18/20 Final JAUN Source: US <20 weeks Gestational age: 38 Weeks and 4 Days Date of Procedure: 09/08/20 Pre-Operative Diagnosis: 38 4/7 weeks gestation, labor Post-Operative Diagnosis: 38 4/7 weeks gestation, labor Surgery/ Procedure Performed: Spontaneous Vaginal Delivery Anesthesiologist: Jennifer Preciado Type of Anesthesia: Epidural Description of Procedure: Patient was FD/+3 on my arrival with Cat II FHR. Patient pushed to deliver a vigorous female . The was placed on the maternal abdomen and further attended by nursery personnel. The cord was doubly clamped and cut at approximately 3 minutes of life. The placenta delivered spontaneously and appeared intact on inspection. A small vaginal laceration was present meeting the perineum however was hemostatic. No sutures indicated. Sponge counts correct x 2. Presentation: Vertex Placental Delivery Description: Spontaneous Placenta Disposition: [facility] Cord Vessel Description: 3 Vessels Cord Entanglement: None Estimated Blood Loss: 150 ml A gender: Female (1 minute): 8 (5 minute): 9 Episiotomy Description: None Laceration: Vaginal Extension/lac, 1st degree Medications given after delivery: IV Pitocin Complications: None
[2020-09-09] VITALS (13 sets, daily range): BP systolic 117–129; BP diastolic 57–77; PULSE 64–77; RESP 16–18; TEMP 36.6–36.7
[2020-09-09] MEDS: Ibuprofen 600 MG Tablet PO ×2 (00:32→15:40)
[2020-09-09] MEDS: Levothyroxine 100 MCG Tablet PO (05:17)
--- NOTE | 2020-09-09 08:23 | PCM.PN.OB ---
Patient Problems: Active and Suspected Problems (Last Updated 09/08/20 @ 20:[address] Chrissie Turk MD) 38 weeks gestation of (Acute) (spontaneous vaginal delivery) (Acute) Subjective: No issues overnight. Feels well and is without complaints. Denies painfulness, heavy lochia. She is . Voiding without difficulty. Objective: AVSS - Physical Exam Vitals/I&O's: Vital Signs Temp Pulse Resp BP Pulse Ox 97.8 F 64 16 117/69 99 09/09/20 07:09 09/09/20 07:09 09/09/20 07:09 09/09/20 07:09 09/08/20 22:18 Oxygen Delivery Method Room Air Weight: 71.4 kg Body Mass Index (BMI) 27.8 Intake and Output for Last 24 Hours 09/07/20 09/08/20 09/09/20 23:59 23:59 23:59 Intake Total 1207.04 / 1207.04 416.3 / 416.3 Output Total 1200 / 1200 Balance 1207.04 / 1207.04 -783.7 / -783.7 General: Alert, Oriented x3, Cooperative, No apparent distress HEENT: Atraumatic, Normocephalic Lungs: Clear to auscultation, Normal air movement Cardiovascular: Regular rate, Regular Rhythm, Normal S1, Normal S2 Abdomen: Soft, Non Tender, Non-Distended, - - Fundus firm and nontender Extremities: No edema, No Calf Tenderness Neurological: Neuro grossly intact Psych/Mental Status: Normal Affect, Appropriate, Alert and oriented to time, place, person, mood and affect Microbiology Past 72 Hours 09/08/20 19:47 Mucosa - Nose - Final Laboratory Results 09/08/20 19:45: WBC 9.9, RBC 4.14 L, Hgb 12.1, Hct 36.5 L, MCV 88.2, MCH 29.2, MCHC 33.2, RDW Std Deviation 41.4, RDW Coeff of Justyna 13.1, Plt Count 256, MPV 12.2 H, Immature Gran % (Auto) 0.800, Neut % (Auto) 64.8, Lymph % (Auto) 24.7, Ritchie % (Auto) 7.2, Eos % (Auto) 2.3, Baso % (Auto) 0.2, Absolute Neuts (auto) 6.4, Absolute Lymphs (auto) 2.44, Nucleated RBC % 0 09/08/20 19:45: Blood Type A POSITIVE, Antibody Screen NEGATIVE Current Medications Acetaminophen (Acetaminophen 500 Mg Tablet) 1,000 mg PO Q8H PRN PRN PRN Reason: Pain Score 1-3 Bisacodyl (Bisacodyl 10 Mg Suppository) 10 mg RECTAL UD PRN PRN Reason: If no BM Dibucaine (Dibucaine 30 Gm Tube) 1 applic TOPICAL TID PRN PRN; Protocol PRN Reason: Discomfort Hydrocortisone (Hydrocortisone 2.5% Crm) 1 applic TOPICAL TID PRN PRN; Protocol PRN Reason: Discomfort Ibuprofen (Ibuprofen 600 Mg Tablet) 600 mg PO Q6H PRN PRN PRN Reason: Pain Score 1-3 Last Admin: 09/09/20 00:32 Dose: 600 mg Documented by: Levothyroxine Sodium (Levothyroxine 100 Mcg Tablet) 100 mcg PO DAILY@0600 SHIRA Last Admin: 09/09/20 05:17 Dose: 100 mcg Documented by: Methylergonovine Maleate (Methylergonovine 0.2 Mg/Ml Ampul) 0.2 mg IM X1 PRN PRN Reason: Excess bleeding/uterine atony Ondansetron HCl (Ondansetron 4 Mg/2 Ml Vial) 4 mg IV Q4H PRN PRN PRN Reason: NAUSEA Last Admin: 09/08/20 22:06 Dose: 4 mg Documented by: Multivit/Folic Acid/Iron ( Vits Tablet) 1 tablet PO DAILY@1200 SHIRA Senna/Docusate Sodium (Senna/Docusate Sodium 1 Tablet) 1 - 2 tablet PO DAILY PRN PRN PRN Reason: Constipation Simethicone (Simethicone 80 Mg Tablet) 80 mg PO PCHS PRN PRN Reason: Indigestion/Stomach pain Sodium Chloride (0.9% Saline Lock 10 Ml Syringe) 5 - 15 ml IV UD PRN PRN Reason: SALINE FLUSH Medical Necessity - Tobacco Use Smoking Status: Never smoker Assessment/Plan All Active Problems (Last Updated 09/08/20 @ 20:[address] Chrissie Turk MD) 38 weeks gestation of (Acute) (spontaneous vaginal delivery) (Acute) This is a 30 year-old, G [2], P [2], PPD#1 s/p doing well. - A positive - -Routine care -hx hypothyroidism - Synthroid reduced to prepregnancy dosing 100mcg daily -Plan for d/c home tomorrow
[2020-09-09] MEDS: Prenatal Vits Tablet 1 TABLET PO (13:15)
[2020-09-10 01:35] VITALS: BP 117/73; PULSE 70; RESP 18; TEMP 36.3
[2020-09-10] MEDS: Ibuprofen 600 MG Tablet PO (03:51)
[2020-09-10 03:52] VITALS: BP 117/73; PULSE 70
[2020-09-10] MEDS: Levothyroxine 100 MCG Tablet PO (05:59)
--- NOTE | 2020-09-10 07:42 | DCINST_ITS ---
Discharge Diet: No Restrictions Discharge Activity: Return to Normal Activity May resume sexual activity in: 4-6 weeks Lifting Restrictions: 20 lb Additional Instructions: If you experience any of the following, contact your healthcare provider. * Bleeding that soaks a pad every hour for 2 hours * Fever 100.4 or higher * Unrelieved incision or abdominal pain * Swelling, redness, discharge or bleeding from your incision or episiotomy site * Your incision begins to separate * Problems urinating (including inability to urinate or burning while urinating). * Visual changes * Severe headache * Flu-like symptoms * Pain or redness in one of both of your breasts * Pain, warmth, tenderness or swelling in your legs, especially the calf area * Frequent nausea and vomiting * Symptoms of depression or anxiety If you experience any of the following, call 911 or go to the nearest Emergency Room. * Chest pain * Problems breathing * Seizure activity * Partial or complete paralysis of a body part, slurred speech, weakness or drooping of the face, or a sudden inability to walk or hold your balance Allergies/Adverse Reactions: Allergies No Known Allergies Allergy (Verified 09/08/20 19:20) Medications to take at Discharge Polyethylene Glycol 3350 [Miralax] 17 gm PO QODAY 09/08/20 Vits [Prenatabs FA ] 1 tab PO DAILY 09/08/20 Ibuprofen [Motrin] 600 mg PO Q8H PRN PRN #30 tab 09/10/20 Levothyroxine [Synthroid] 100 mcg PO DAILY@0600 #30 tab 09/10/20 The following prescriptions were given: Ibuprofen [Motrin] 600 mg PO Q8H PRN PRN #30 tab PRN Reason: Pain Score 1-10 Transmission Status: Pending to [id number] Levothyroxine [Synthroid] 100 mcg PO DAILY@0600 #30 tab Transmission Status: Pending to [id number] Please Follow Up With: Mary When: 6 weeks Primary Care Physician: Josue Linares MD [Primary Care Provider] - Test Results: Test results from this visit will be discussed in further detail at your follow- up appointment, if applicable.
[2020-09-10 08:55] VITALS: BP 127/72; PULSE 75; RESP 14; TEMP 36.6
[2020-09-10 09:01] VITALS: BP 127/72; PULSE 75
--- NOTE | 2020-09-10 09:23 | PCM.PN.OB ---
Patient Problems: Active and Suspected Problems (Last Updated 09/08/20 @ 20:[address] Chrissie Turk MD) 38 weeks gestation of (Acute) (spontaneous vaginal delivery) (Acute) Subjective: No issues overnight. Feels great this morning and looks forward to going home. Denies heavy lochia or painfulness. Objective: AVSS - Physical Exam Vitals/I&O's: Vital Signs Temp Pulse Resp BP Pulse Ox 97.9 F 75 14 127/72 H 99 09/10/20 08:55 09/10/20 09:01 09/10/20 08:55 09/10/20 09:01 09/08/20 22:18 Oxygen Delivery Method Room Air Weight: 71.4 kg Body Mass Index (BMI) 27.8 Intake and Output for Last 24 Hours 09/08/20 09/09/20 09/10/20 23:59 23:59 23:59 Intake Total 1207.04 / 1207.04 416.3 / 416.3 Output Total 1600 / 1600 Balance 1207.04 / 1207.04 -1183.7 / -1183.7 General: Alert, Oriented x3, Cooperative, No apparent distress HEENT: Atraumatic, Normocephalic Lungs: Clear to auscultation, Normal air movement Cardiovascular: Regular rate, Regular Rhythm, Normal S1, Normal S2 Abdomen: Soft, Non Tender, Non-Distended Extremities: No edema, No Calf Tenderness Neurological: Neuro grossly intact Psych/Mental Status: Normal Affect, Appropriate, Alert and oriented to time, place, person, mood and affect Microbiology Past 72 Hours 09/08/20 19:47 Mucosa - Nose - Final Current Medications Acetaminophen (Acetaminophen 500 Mg Tablet) 1,000 mg PO Q8H PRN PRN PRN Reason: Pain Score 1-3 Bisacodyl (Bisacodyl 10 Mg Suppository) 10 mg RECTAL UD PRN PRN Reason: If no BM Dibucaine (Dibucaine 30 Gm Tube) 1 applic TOPICAL TID PRN PRN; Protocol PRN Reason: Discomfort Hydrocortisone (Hydrocortisone 2.5% Crm) 1 applic TOPICAL TID PRN PRN; Protocol PRN Reason: Discomfort Ibuprofen (Ibuprofen 600 Mg Tablet) 600 mg PO Q6H PRN PRN PRN Reason: Pain Score 1-3 Last Admin: 09/10/20 03:51 Dose: 600 mg Documented by: Levothyroxine Sodium (Levothyroxine 100 Mcg Tablet) 100 mcg PO DAILY@0600 SHIRA Last Admin: 09/10/20 05:59 Dose: 100 mcg Documented by: Methylergonovine Maleate (Methylergonovine 0.2 Mg/Ml Ampul) 0.2 mg IM X1 PRN PRN Reason: Excess bleeding/uterine atony Ondansetron HCl (Ondansetron 4 Mg/2 Ml Vial) 4 mg IV Q4H PRN PRN PRN Reason: NAUSEA Last Admin: 09/08/20 22:06 Dose: 4 mg Documented by: Multivit/Folic Acid/Iron ( Vits Tablet) 1 tablet PO DAILY@1200 SHIRA Last Admin: 09/09/20 13:15 Dose: 1 tablet Documented by: Senna/Docusate Sodium (Senna/Docusate Sodium 1 Tablet) 1 - 2 tablet PO DAILY PRN PRN PRN Reason: Constipation Simethicone (Simethicone 80 Mg Tablet) 80 mg PO PCHS PRN PRN Reason: Indigestion/Stomach pain Sodium Chloride (0.9% Saline Lock 10 Ml Syringe) 5 - 15 ml IV UD PRN PRN Reason: SALINE FLUSH Medical Necessity - Tobacco Use Smoking Status: Never smoker Assessment/Plan All Active Problems (Last Updated 09/08/20 @ 20:[address] Chrissie Turk MD) 38 weeks gestation of (Acute) (spontaneous vaginal delivery) (Acute) This is a 30 year-old, G [2], P [2], PPD#2 s/p doing well. - A positive - -Routine care -d/c home today
== END 2020-09-10 11:00 | disposition home or self-care (01) | DRG 807 ==
LOC: WPOUT 19:35 → WP 19:35
PROVIDERS: Admitting Provider Obstetrics & Gynecology; PCP Family Medicine; Visit Provider Obstetrics & Gynecology
DX: O99.284 Endocrine, nutritional and metabolic diseases complicating childbirth (principal); Z37.0 Single live birth; E03.9 Hypothyroidism, unspecified; Z3A.38 38 weeks gestation of pregnancy; O70.0 First degree perineal laceration during delivery
CPT/HCPCS: 59025; 59050; 85025; 86850; 86900; 86901; 87426; 99218; J7120; G0378; J2405

== ENCOUNTER → 2020-10-20 10:14 | Outpatient (CLI) | payer OTHER, SELFPAY ==
[2020-09-08 19:20] VITALS: BMI 27.8
[2020-10-20 13:57] LABS: Free T3 4.2 pg/mL (2.18-3.98); T4 Free Direct 1.63 ng/dL (0.76-1.46); Thyroid Stim Hormone (TSH) 0.01 uIU/mL (0.358-3.74)
== END ==
PROVIDERS: PCP Family Medicine; Visit Provider Obstetrics & Gynecology
DX: E03.9 Hypothyroidism, unspecified (principal)
CPT/HCPCS: 36415; 84439; 84443; 84481

== ENCOUNTER → 2020-12-31 13:37 | Outpatient (CLI) | payer OTHER, SELFPAY ==
[2020-09-08 19:20] VITALS: BMI 27.8
[2020-12-31 16:00] LABS: Free T3 2.2 pg/mL (2.18-3.98); T4 Free Direct 0.91 ng/dL (0.76-1.46); Thyroid Stim Hormone (TSH) 9.78 uIU/mL (0.358-3.74)
== END ==
PROVIDERS: PCP Family Medicine; Referring Provider Family Medicine; Visit Provider Family Medicine
DX: E03.9 Hypothyroidism, unspecified (principal)
CPT/HCPCS: 36415; 84439; 84443; 84481

== ENCOUNTER → 2021-03-17 15:14 | Outpatient (CLI) | payer OTHER, SELFPAY ==
[2020-09-08 19:20] VITALS: BMI 27.8
[2021-03-17 16:14] LABS: Free T3 2.8 pg/mL (2.18-3.98); T4 Free Direct 1.16 ng/dL (0.76-1.46)
== END ==
PROVIDERS: PCP Family Medicine; Referring Provider Family Medicine; Visit Provider Family Medicine
DX: E03.9 Hypothyroidism, unspecified (principal)
CPT/HCPCS: 36415; 84439; 84443; 84481

== ENCOUNTER → 2021-07-29 15:59 | Outpatient (CLI) | payer OTHER, SELFPAY ==
[2021-07-29 17:21] LABS: T4 Total, Thyroxin 11.8 ug/dL (4.8-13.9); Thyroid Stim Hormone (TSH) 1.74 uIU/mL (0.358-3.74)
== END ==
PROVIDERS: PCP Family Medicine; Visit Provider Family Medicine
DX: E03.9 Hypothyroidism, unspecified (principal)
CPT/HCPCS: 36415; 84436; 84443

== ENCOUNTER → 2022-04-02 | Outpatient (CLI) | payer OTHER, SELFPAY ==
[2022-04-02 08:45] LABS: Anion Gap 4 (5-15); BUN 16 mg/dL (7-18); BUN/Creat Ratio 22.6 RATIO (10-20); Calcium,Total 9.1 mg/dL (8.5-10.1); Chloride 108 mmol/L (98-107); Cholesterol 137 mg/dL (200); Creatinine, Serum 0.71 mg/dL (0.55-1.02); EST Glomerular Filtration Rate 102 mL/min (>60); Est Glom Filt Rate - Afr Amer 123 mL/min (>60); Glucose 91 mg/dL (74-106); High Density Lipoprotein 53 mg/dL; Potassium 4.1 mmol/L (3.5-5.1); Sodium Level 139 mmol/L (136-145); T4 Free Direct 1.17 ng/dL (0.76-1.46); Thyroid Stim Hormone (TSH) 2.89 uIU/mL (0.358-3.74); Triglycerides 55 mg/dL; Very Low Density Lipoprotein 11 mg/dL (5-40)
== END | disposition home or self-care (01) ==
LOC: LAB 07:40
PROVIDERS: PCP Family Medicine; Referring Provider Family Medicine; Visit Provider Family Medicine
DX: E03.9 Hypothyroidism, unspecified (principal)
CPT/HCPCS: 36415; 80048; 80061; 84439; 84443

== ENCOUNTER → 2022-07-19 | Outpatient (CLI) | payer OTHER, SELFPAY ==
[2022-07-19 18:37] LABS: Vitamin D,25 Hydroxy 37.3 ng/mL
[2022-07-19 18:43] LABS: T4 Free Direct 1.25 ng/dL (0.76-1.46); Thyroid Stim Hormone (TSH) 2.57 uIU/mL (0.358-3.74)
== END | disposition home or self-care (01) ==
LOC: MFPLAB 16:18
PROVIDERS: PCP Family Medicine; Visit Provider Family Medicine
DX: F41.1 Generalized anxiety disorder (principal); E03.9 Hypothyroidism, unspecified
CPT/HCPCS: 36415; 82306; 84439; 84443

== ENCOUNTER → 2022-09-14 | Outpatient (CLI) | payer OTHER, SELFPAY ==
[2022-09-14 16:10] LABS: Absolute Neutrophil Count 3.8 X10^3/uL (2.0-7.7); Basophil# 0.01 X10^3/uL; Basophil% 0.2 % (0-1); Eosinophil# 0.21 X10^3/uL; Eosinophils% 3.2 % (0-5); Hematocrit 34.4 % (37-47); Hemoglobin 11.8 g/dL (12.0-15.0); Lymphocyte % 31.7 % (19-41); Mean Corp Hgb Conc 34.3 g/dL (32-36); Mean Corpuscular Hgb 29.9 pg (27.0-32.0); Mean Corpuscular Volume 87.1 fL (81-99); Mean Platelet Vol. 10.2 fl (6.2-12.0); Monocyte# 0.52 X10^3/uL; Monocyte% 7.8 % (0-10); NRBC Flagged by Analyzer 0 % (0-5); Neutrophil # 3.77 X10^3/uL (2.7-7.7); Neutrophil % 56.8 % (47-70); Platelet Count 313 K/mm3 (150-450); RBC Distribution Width CV 12.2 % (11.6-14.6); Red Blood Count 3.95 M/mm3 (4.2-5.4); White Blood Count 6.6 K/mm3 (4.4-11.0)
[2022-09-15 09:28] LABS: HIV - WCH Non-Reactive (Nonreactive); Hepatitis B Surface Antigen Non-Reactive (Nonreactive); Hepatitis C Antibody Non-Reactive (Nonreactive); Rubella IgG Reactive (Nonreactive); Syphilis Antibodies Non-reactive
[2022-09-15 15:22] LABS: Thyroid Stim Hormone (TSH) 6.17 uIU/mL (0.358-3.74)
[2022-09-16 15:35] LABS: V-Zoster IgG (Immunity) 974 index (Immune >165)
[2022-09-18 11:07] LABS: Chlamydia By Nucleic Acid AMP Negative (Negative)
[2022-09-18 14:00] LABS: Gonococcus By Nucleic Acid AMP Negative (Negative)
== END | disposition home or self-care (01) ==
LOC: WOBLAB 15:43
PROVIDERS: PCP Family Medicine; Visit Provider Student in an Organized Health Care Education/Training Program
DX: Z34.81 Encounter for supervision of other normal pregnancy, first trimester (principal)
CPT/HCPCS: 36415; 84443; 85025; 86703; 86762; 86780; 86787; 86803; 87086; 87340; 87491; 87591

== ENCOUNTER → 2022-10-12 | Outpatient (CLI) | payer OTHER, SELFPAY ==
[2022-10-12 18:22] LABS: T4 Free Direct 1.24 ng/dL (0.76-1.46); Thyroid Stim Hormone (TSH) 4.01 uIU/mL (0.358-3.74)
== END | disposition home or self-care (01) ==
LOC: WOBLAB 16:06
PROVIDERS: PCP Family Medicine; Visit Provider Student in an Organized Health Care Education/Training Program
DX: E03.9 Hypothyroidism, unspecified (principal)
CPT/HCPCS: 36415; 84439; 84443

== ENCOUNTER → 2022-11-21 | Outpatient (CLI) | payer OTHER, SELFPAY ==
[2022-11-21 12:40] LABS: T4 Free Direct 1.31 ng/dL (0.76-1.46); Thyroid Stim Hormone (TSH) 1.22 uIU/mL (0.358-3.74)
== END | disposition home or self-care (01) ==
LOC: WOBLAB 10:46
PROVIDERS: PCP Family Medicine; Visit Provider Student in an Organized Health Care Education/Training Program
DX: E03.9 Hypothyroidism, unspecified (principal)
CPT/HCPCS: 36415; 84439; 84443

== ENCOUNTER → 2023-01-16 | Outpatient (CLI) | payer OTHER, SELFPAY ==
[2023-01-16 16:49] LABS: Hematocrit 33.9 % (37-47); Hemoglobin 11.2 g/dL (12.0-15.0); Mean Corpuscular Volume 87.8 fL (81-99); Mean Platelet Vol. 10.8 fl (6.2-12.0); Platelet Count 292 K/mm3 (150-450); RBC Distribution Width CV 12.3 % (11.6-14.6); RBC Distribution Width SD 39.5 fl (35.1-43.9); Red Blood Count 3.86 M/mm3 (4.2-5.4); White Blood Count 10.1 K/mm3 (4.4-11.0)
[2023-01-16 18:47] LABS: Syphilis Antibodies Non-reactive
[2023-01-16 18:52] LABS: Glucose Challenge Gest 1H 50g 94 mg/dL (70-140); T4 Free Direct 1.19 ng/dL (0.76-1.46); Thyroid Stim Hormone (TSH) 0.96 uIU/mL (0.358-3.74)
== END | disposition home or self-care (01) ==
LOC: WOBLAB 16:27
PROVIDERS: PCP Family Medicine; Visit Provider Student in an Organized Health Care Education/Training Program
DX: Z34.82 Encounter for supervision of other normal pregnancy, second trimester (principal); E03.9 Hypothyroidism, unspecified
CPT/HCPCS: 36415; 82950; 84439; 84443; 85027; 86780

== ENCOUNTER → 2023-02-20 | Outpatient (CLI) | payer OTHER, SELFPAY ==
[2023-02-20 17:10] LABS: T4 Free Direct 1.25 ng/dL (0.76-1.46); Thyroid Stim Hormone (TSH) 0.81 uIU/mL (0.358-3.74)
== END | disposition home or self-care (01) ==
LOC: WOBLAB 16:05
PROVIDERS: PCP Family Medicine; Visit Provider Student in an Organized Health Care Education/Training Program
DX: E03.9 Hypothyroidism, unspecified (principal)
CPT/HCPCS: 36415; 84439; 84443

== ENCOUNTER → 2023-03-20 | Outpatient (CLI) | payer OTHER, SELFPAY ==
[2023-03-20 17:16] LABS: Hematocrit 31.1 % (37-47); Mean Corp Hgb Conc 32.2 g/dL (32-36); Mean Corpuscular Volume 87.1 fL (81-99); Mean Platelet Vol. 12.3 fl (6.2-12.0); Platelet Count 273 K/mm3 (150-450); RBC Distribution Width CV 12.7 % (11.6-14.6); RBC Distribution Width SD 40.1 fl (35.1-43.9); Red Blood Count 3.57 M/mm3 (4.2-5.4); White Blood Count 9.1 K/mm3 (4.4-11.0)
[2023-03-20 17:31] LABS: T4 Free Direct 1.18 ng/dL (0.76-1.46); Thyroid Stim Hormone (TSH) 1.13 uIU/mL (0.358-3.74)
== END | disposition home or self-care (01) ==
LOC: WOBLAB 16:15
PROVIDERS: PCP Family Medicine; Visit Provider Student in an Organized Health Care Education/Training Program
DX: Z34.83 Encounter for supervision of other normal pregnancy, third trimester (principal); Z36.85 Encounter for antenatal screening for Streptococcus B; E03.9 Hypothyroidism, unspecified
CPT/HCPCS: 36415; 84439; 84443; 85027; 87077; 87081; 87186

== ENCOUNTER 2023-03-27 16:30 | Outpatient (CLI) | payer OTHER, SELFPAY ==
[2023-03-27 16:47] VITALS: BP 141/87; PULSE 81
[2023-03-27 16:48] VITALS: TEMP 37.1
[2023-03-27 16:52] VITALS: BMI 31.7
[2023-03-27 17:00] VITALS: BP 137/79; PULSE 75
--- NOTE | 2023-03-28 05:07 | PCM.PN.OB ---
Subjective Subjective 32-year-old at 37/4 weeks, presented to labor and delivery from office. Patient was in the office and had Doppler heart tone in the 90s to low 100s, which quickly resolved within seconds to 130s baseline. Patient sent for extended monitoring. Patient reports normal movement. No leaking of fluid, no contractions or vaginal bleeding. Objective Data Objective Data Vital Signs: Vital Signs Temp Pulse BP 98.8 F 75 137/79 H 03/27/23 16:48 03/27/23 17:00 03/27/23 17:00 Weight: 78.744 kg Body Mass Index (BMI) 31.7 NST FHR Rate Baby A Baseline: 130 Variability:: Moderate Accelerations:: 15 x 15 Decelerations:: None NST Reactive:: Yes Uterine Activity:: occasional Assessment & Plan (1) 37 weeks gestation of : PLAN: 32-year-old at 37/4 weeks presenting for extended monitoring. heart rate Doppler in office of 90s to low 100s, unable to determine if this was maternal heart rate versus , therefore sent to labor and delivery for extended monitoring. Extended monitoring was reassuring, with moderate variability and accelerations. No detection of heart rate in the 90s or 100s. Patient was monitored for approximately 2 hours. Patient discharged home with labor and kick count precautions. We will follow-up this week in office.
== END 2023-03-27 18:45 | disposition home or self-care (01) ==
LOC: WPOUT 16:35 → WP 16:36
PROVIDERS: PCP Family Medicine; Referring Provider Student in an Organized Health Care Education/Training Program; Visit Provider Student in an Organized Health Care Education/Training Program
DX: O36.8330 Maternal care for abnormalities of the fetal heart rate or rhythm, third trimester, not applicable or unspecified (principal); Z3A.37 37 weeks gestation of pregnancy
CPT/HCPCS: 59025; 59050; 99221; G0378

== ENCOUNTER 2023-04-02 22:23 | Inpatient (IN) | payer OTHER, SELFPAY ==
[2023-04-02] VITALS (23 sets, daily range): BP systolic 110–164; BP diastolic 56–89; PULSE 77–99; TEMP 36.9; O2SAT 91–100; BMI 32.1
--- NOTE | 2023-04-02 15:37 | OB.TRI.NOTE ---
HPI - General General Date of Service: 04/02/23 HPI Narrative KEEGAN PHELAN, is a 32 F who presents with contractions [facility] Medical History (Updated 03/28/23 @ 05:[address] Keegan Mcdermott, DO) Hypothyroidism Home Medications vits,calcium no.78-iron fumarate-folic acid 29 mg-1 mg tablet 1 tab PO DAILY 09/08/20 [History Last Taken 04/01/23 22:00] ferrous sulfate 325 mg (65 mg iron) capsule,extended release 325 mg PO QODAY 04/02/23 [History Last Taken 04/01/23 09:00] levothyroxine 175 mcg tablet (Synthroid) 175 mcg PO DAILY 04/02/23 [History Last Taken 04/02/23 07:00] sertraline 50 mg tablet (Zoloft) 50 mg PO DAILY 04/02/23 [History Last Taken 04/01/23 22:00] Allergy/AdvReac Type Severity Reaction Status Date / Time No Known Allergies Allergy Verified 03/27/23 16:55 Social History Smoking Status: Never smoker History Elective abortions Hx Para 1 Spontaneous abortions Hx # Term Pregnancies Ectopic pregnancies Hx # Pregnancies Multiple births # of living children NST FHR Rate Baby A Baseline: 120 Variability:: Moderate Accelerations:: 15 x 15 Decelerations:: None NST Reactive:: Yes Uterine Activity:: Every 4 to 8 minutes Assessment & Plan (1) 38 weeks gestation of : PLAN: Called by nursing patient arrived from home with contractions. Overall per nursing patient comfortable in bed with mild contractions palpated. Per nursing cervical exam 3 cm. Instructed nursing to recheck cervix in 2 hours. Nursing called back with repeat cervical exam overall cervical dilation unchanged. Discussed with nursing offer patient recheck in 2 hours versus home-going, patient lives in [place], patient desires per nursing to discharge home and monitor. Patient has nursing about GBS prophylaxis discussed unknown timing of labor and would prophylax as soon as patient arrives if in labor. Okay to discharge home with labor precautions
[2023-04-02] MEDS: Lactated Ringers 1,000 ML 50 ML IV (22:47)
[2023-04-02] MEDS: LACTATED RINGERS 500 ML 999 ML IV (22:57)
[2023-04-02 23:00] LABS: Absolute Lymphocyte Count 2.27 X10^3/uL (0.83-4.51); Absolute Neutrophil Count 5.1 X10^3/uL (2.0-7.7); Basophil# 0.02 X10^3/uL; Basophil% 0.2 % (0-1); Eosinophil# 0.22 X10^3/uL; Eosinophils% 2.6 % (0-5); Hematocrit 32.2 % (37-47); Hemoglobin 10.3 g/dL (12.0-15.0); Lymphocyte # 2.27 X10^3/ul (0.83-4.51); Lymphocyte % 26.9 % (19-41); Mean Corpuscular Hgb 27.5 pg (27.0-32.0); Mean Corpuscular Volume 85.9 fL (81-99); Mean Platelet Vol. 12.1 fl (6.2-12.0); Monocyte# 0.77 X10^3/uL; Monocyte% 9.1 % (0-10); NRBC Flagged by Analyzer 0 % (0-5); Neutrophil # 5.12 X10^3/uL (2.7-7.7); Neutrophil % 60.7 % (47-70); Platelet Count 254 K/mm3 (150-450); RBC Distribution Width CV 13.4 % (11.6-14.6); RBC Distribution Width SD 41.1 fl (35.1-43.9); Red Blood Count 3.75 M/mm3 (4.2-5.4); White Blood Count 8.4 K/mm3 (4.4-11.0)
--- NOTE | 2023-04-02 23:13 | PCM.HP.BLA ---
History and Physical Date of Admission: 04/02/23 Chief complaint: Contractions History present illness: 32-year-old at 38 weeks and 3 days with JAUN 04/13/2023 arrives with contractions. Denies headache, vision change, chest pain, shortness of breath, nausea vomit, right upper quadrant pain. Patient states good movement. is complicated by hypothyroid, anxiety on Zoloft, GBS positive Obstetric history: G1: 40-week male G2: 40-week female G3: Current Past medical history: Hypothyroid, anxiety Medications: Synthroid, Zoloft, vitamin Allergies: No known drug allergies Past surgical history: Reynolds tooth extraction Social history: Denies smoking, alcohol use, drug use Family history: Denies history DVT or PE Review of systems: Besides above pertinent positives a full review of systems was performed and found to be negative Physical exam: Vitals: Pulse 82 SPO2 98% on room air General: Normal-appearing no acute distress HEENT: Normocephalic/atraumatic no cervical lymphadenopathy Cardiac/respiratory: No use of accessory muscles, nonlabored breathing Abdomen: Soft, nontender, gravid Extremities: No peripheral edema normal peripheral pulses Psych: Normal affect normal demeanor nonpressured speech Labs: White blood cell count 8.4 hemoglobin 10.3 hematocrit 32.2% platelets 254 Assessment and plan: 32-year-old at 38 weeks and 3 days in labor. Called by nursing with contractions and cervical exam advanced dilation prior to previous cervical exam. Given orders for admission to nursing along with penicillin for GBS positive and informed okay for epidural. Arrived for evaluation and patient with discomfort with contractions but overall doing well. Educated patient on plan for labor including penicillin. Nursing preparing for epidural
[2023-04-02] MEDS: fentaNYL-bupivacaine (epidural) 100 ML BAG EPIDURAL (23:21)
[2023-04-02 23:36] LABS: Syphilis Antibodies Non-reactive
[2023-04-03] VITALS (58 sets, daily range): BP systolic 93–146; BP diastolic 54–79; PULSE 67–95; RESP 16–18; TEMP 36.3–37.1; O2SAT 96–100
--- NOTE | 2023-04-03 01:03 | PN.OBGYN_ITS ---
Subjective Subjective Patient overall comfortable with epidural Objective Data Objective Data Vital Signs: Vital Signs Temp Pulse BP Pulse Ox 97.8 F 76 93/54 L 100 04/03/23 00:23 04/03/23 00:58 04/03/23 00:58 04/03/23 00:57 Weight: 176 lb Body Mass Index (BMI) 32.1 Intake & Output: Intake and Output for Last 24 Hours 04/01/23 04/02/23 04/03/23 23:59 23:59 23:59 Intake Total 613.33 / 613.33 Balance 613.33 / 613.33 Lab / Micro Data Result Diagrams: 04/02/23 22:47 Labs: Laboratory Results - last 24 hr 04/02/23 22:47: WBC 8.4, RBC 3.75 L, Hgb 10.3 L, Hct 32.2 L, MCV 85.9, MCH 27.5, MCHC 32.0, RDW Std Deviation 41.1, RDW Coeff of Justyna 13.4, Plt Count 254, MPV 12.1 H, Immature Gran % (Auto) 0.500, Neut % (Auto) 60.7, Lymph % (Auto) 26.9, Tyrrell % (Auto) 9.1, Eos % (Auto) 2.6, Baso % (Auto) 0.2, Absolute Neuts (auto) 5.1, Absolute Lymphs (auto) 2.27, Nucleated RBC % 0 04/02/23 22:47: Blood Type A POSITIVE, Antibody Screen NEGATIVE 04/02/23 22:47: Syphilis Total Ab Non-reactive Physical Exam Const alert, oriented x3, no apparent distress, average body habitus, healthy appearin g and well nourished HEENT normocephalic and moist oral mucous membranes Eyes PERRL Neck full ROM Resp normal respiratory effort, no retractions and no use of accessory muscles Psych mental status grossly normal, affect normal, speech normal and activity/motor behavior normal Assessment & Plan (1) 38 weeks gestation of : PLAN: Called by nursing with prolonged deceleration. Arrived to room with prolonged deceleration in the 60s. Patient initially on hands and knees upon arrival adjusted to supine to check cervix, cervix 7/80/-1. Informed by nursing patient SROM just prior to prolonged deceleration. Order for operating room to be open, to call anesthesia and [employer]. Deceleration for approximately 6 minutes with temporary recovery and then appearance of late deceleration then permanent recovered with position changes O2 and fluid bolus. Order for terbutaline initially given by time medication arrived to room heart tones had recovered terbutaline order DC'd. Educated patient on prolonged deceleration and management plan going forward discussed risk for baby, discussed possible need for terbutaline use. Patient and partner state understanding, appreciative. We will continue expectant management and continue to monitor heart tones
[2023-04-03] MEDS: Oxytocin 10 UNITS/ML Vial IM (03:40)
[2023-04-03] MEDS: Oxytocin 15 Units/NS 250ml 15 UNITS/250 ML IV.SOLN 83 UNITS IV (03:41)
[2023-04-03] MEDS: Methylergonovine 0.2 MG/ML Ampul IM (03:47)
--- NOTE | 2023-04-03 03:55 | EX.PCM.OBRPT ---
Vaginal Delivery Findings Description of Procedure: Normal spontaneous vaginal delivery of a viable female infant, vertex FUAD. Head and shoulders delivered with ease. Cord clamped and cut. Baby handed off to patient. Placenta delivered via cord traction and fundal massage. IM and IV Pitocin given per protocol. IM Methergine given with mild atony. Uterus noted to be firm. No lacerations noted. EBL 300 cc Apgars 8/9
[2023-04-03] MEDS: Levothyroxine 175 MCG Tablet PO (06:13)
[2023-04-03] MEDS: Sertraline 50 MG Tablet PO (09:18)
[2023-04-03] MEDS: Ibuprofen 600 MG Tablet PO ×2 (09:18→17:46)
[2023-04-04 04:30] VITALS: BP 124/79; PULSE 77; RESP 18; TEMP 36.2; O2SAT 97
[2023-04-04] MEDS: Ibuprofen 600 MG Tablet PO (04:36)
[2023-04-04] MEDS: Levothyroxine 175 MCG Tablet PO (06:01)
[2023-04-04 07:55] VITALS: BP 110/70; PULSE 76; RESP 16; TEMP 36.8; O2SAT 98
--- NOTE | 2023-04-04 08:30 | PCM.PN.OB ---
Subjective Subjective Patient feeling well. Breast-feeding. Lochia minimal. Objective Data Objective Data Vital Signs: Vital Signs Temp Pulse Resp BP Pulse Ox O2 Del Method 97.2 F L 77 18 124/79 H 97 Room Air 04/04/23 04:30 04/04/23 04:30 04/04/23 04:30 04/04/23 04:30 04/04/23 04:30 04/04/23 04:30 Oxygen Delivery Method Room Air Weight: 79.832 kg Body Mass Index (BMI) 32.1 Intake & Output: Intake and Output for Last 24 Hours 04/02/23 04/03/23 04/04/23 23:59 23:59 23:59 Intake Total 613.33 / 613.33 1093.33 / 1093.33 Output Total 750 / 750 Balance 613.33 / 613.33 343.33 / 343.33 Lab / Micro Data Attestation: I reviewed the patient's lab results. Result Diagrams: 04/02/23 22:47 Physical Exam Const alert, oriented x3 and no apparent distress HEENT normocephalic Head and Scalp: atraumatic Neck full ROM Resp normal respiratory effort Cardio regular rate GI normal to inspection, nondistended, normoactive bowel sounds GI Narrative: Uterus 2 cm below umbilicus Back/Spine normal ROM Extremity normal to inspection Extremity Narrative: Minimal pedal edema Neuro no focal motor deficits and no sensory deficits noted Psych mental status grossly normal and affect normal Assessment & Plan (1) (spontaneous vaginal delivery): PLAN: day 1 status post spontaneous vaginal delivery. Complicated by hypothyroidism, stable on medication. Breast-feeding. Discharge home today.
--- NOTE | 2023-04-04 08:31 | DCINST_ITS ---
Discharge Instructions Diet Discharge Diet: No restrictions Activity Discharge Activity: Return to Normal Activity and May Shower May resume sexual activity in: 4-6 weeks Weight Bearing Status: Weight bearing as tolerated Lifting Restrictions: No greater than 25 pounds Dressing / Incision Call your doctor if you observe: Fever of 101 or Higher, Change in Color, Inability to urinate, Using more than 1 pad per hour, Shortness of breath, Dizziness, Swelling in the ankles, Chest pain and Calf discomfort Follow Up Care Please Follow Up With: Shabana Mcdermott DO When: 6-week visit Test Results: Test results from this visit will be discussed in further detail at your follow- up appointment, if applicable. Discharge Plan Admission Admit Date/Time: 04/02/23 22:23 Primary Reason for Your Visit: Vaginal delivery Attending Provider: Mark Anthony Mcdermott Primary Care Provider: Josue Linares Discharge Orders/Prescriptions Prescriptions: Continued vit,[id number] 1 TABLET tablet 1 tab PO DAILY levothyroxine [Synthroid] 175 mcg Tablet 175 mcg PO DAILY sertraline [Zoloft] 50 mg Tablet 50 mg PO DAILY ferrous sulfate 325 mg (65 mg iron) Capsule, Extended Release 325 mg PO QODAY Referrals / Follow Up: Josue Linares MD [Primary Care Provider] - Disposition Disposition (needs filled in before D/C Order can be placed): Home, Self Care
[2023-04-04] MEDS: Sertraline 50 MG Tablet PO (10:03)
== END 2023-04-04 11:26 | disposition home or self-care (01) | DRG 807 ==
LOC: WPOUT 22:25 → WP 22:25
PROVIDERS: Admitting Provider Obstetrics & Gynecology; PCP Family Medicine; Visit Provider Obstetrics & Gynecology
DX: O76 Abnormality in fetal heart rate and rhythm complicating labor and delivery (principal); Z37.0 Single live birth; O99.344 Other mental disorders complicating childbirth; E03.9 Hypothyroidism, unspecified; F41.9 Anxiety disorder, unspecified; O99.824 Streptococcus B carrier state complicating childbirth; Z3A.38 38 weeks gestation of pregnancy; O99.284 Endocrine, nutritional and metabolic diseases complicating childbirth
CPT/HCPCS: 59025; 59050; 85025; 86780; 86850; 86900; 86901; 99221; J7120; G0378

== ENCOUNTER → 2023-05-15 | Outpatient (CLI) | payer OTHER, SELFPAY ==
[2023-05-15 18:04] LABS: T4 Free Direct 1.82 ng/dL (0.76-1.46); Thyroid Stim Hormone (TSH) 0.01 uIU/mL (0.358-3.74)
== END | disposition home or self-care (01) ==
LOC: WOBLAB 16:52
PROVIDERS: PCP Family Medicine; Visit Provider Student in an Organized Health Care Education/Training Program
DX: Z39.2 Encounter for routine postpartum follow-up (principal)
CPT/HCPCS: 36415; 84439; 84443

== ENCOUNTER → 2023-06-30 | Outpatient (CLI) | payer OTHER, SELFPAY ==
[2023-06-30 09:27] LABS: T4 Free Direct 1.48 ng/dL (0.76-1.46); Thyroid Stim Hormone (TSH) < 0.01 uIU/mL (0.358-3.74)
== END | disposition home or self-care (01) ==
LOC: LAB 08:11
PROVIDERS: PCP Family Medicine; Referring Provider Student in an Organized Health Care Education/Training Program; Visit Provider Student in an Organized Health Care Education/Training Program
DX: E03.9 Hypothyroidism, unspecified (principal)
CPT/HCPCS: 36415; 84439; 84443

== ENCOUNTER → 2023-08-29 | Outpatient (CLI) | payer OTHER, SELFPAY ==
[2023-08-29 10:38] LABS: T4 Free Direct 1.16 ng/dL (0.76-1.46); Thyroid Stim Hormone (TSH) 0.14 uIU/mL (0.358-3.74)
== END | disposition home or self-care (01) ==
LOC: LAB 08:46
PROVIDERS: PCP Family Medicine; Referring Provider Family Medicine; Visit Provider Family Medicine
DX: E03.9 Hypothyroidism, unspecified (principal)
CPT/HCPCS: 36415; 84439; 84443

== ENCOUNTER → 2023-11-03 | Outpatient (CLI) | payer OTHER, SELFPAY ==
[2023-11-03 18:02] LABS: T4 Free Direct 1.03 ng/dL (0.76-1.46); Thyroid Stim Hormone (TSH) 4.83 uIU/mL (0.358-3.74)
== END | disposition home or self-care (01) ==
LOC: MFPLAB 15:44
PROVIDERS: PCP Family Medicine; Visit Provider Family Medicine
DX: E03.9 Hypothyroidism, unspecified (principal)
CPT/HCPCS: 36415; 84439; 84443

== ENCOUNTER → 2024-03-06 | Outpatient (CLI) | payer OTHER, SELFPAY ==
[2024-03-06 18:10] LABS: Thyroid Stim Hormone (TSH) 2.21 uIU/mL (0.358-3.74)
== END | disposition home or self-care (01) ==
PROVIDERS: PCP Family Medicine; Referring Provider Family Medicine; Visit Provider Family Medicine
DX: E03.9 Hypothyroidism, unspecified (principal)
CPT/HCPCS: 36415; 84443

== ENCOUNTER → 2025-01-31 | Outpatient (CLI) | payer OTHER, SELFPAY ==
[2025-01-31 17:51] LABS: Free T3 2.6 pg/mL (2.18-3.98)
== END | disposition home or self-care (01) ==
PROVIDERS: PCP Family Medicine; Referring Provider Nurse Practitioner Family; Visit Provider Nurse Practitioner Family
DX: Z12.4 Encounter for screening for malignant neoplasm of cervix (principal); E03.9 Hypothyroidism, unspecified; Z13.29 Encounter for screening for other suspected endocrine disorder
CPT/HCPCS: 36415; 84439; 84443; 84481; 87624; 88175; G0145